=== PATIENT | male | born 1985 | race Caucasian/White ===

== ENCOUNTER 2017-10-20 13:46 | Emergency (ER) | payer BC ==
[2017-10-20] MEDS ORDERED: ONDANSETRON 4 MG/2 ML VIAL ONE (13:57)
[2017-10-20] MEDS ORDERED: NA CHLORIDE 0.9% 1,000 ML ONE (13:57)
--- NOTE | 2017-10-20 14:13 | EKG ---
Test Date: 2017-10-20 Test Time: 14:01:40 Piece Work Inspector: TAYLOR MEASUREMENT RESULTS: Intervals: Rate: 58 CT: 172 QRSD: 98 QT: 374 QTc: 367 [place]: P: 48 CT: 172 QRS: 34 T: 64 INTERPRETIVE STATEMENTS: Sinus bradycardia Junctional ST depression, probably normal Borderline ECG Compared to ECG 11/21/2015 13:02:08 ST (T wave) deviation now present Sinus rhythm no longer present Electronically Signed On 10-20-17 14:12:21 CDT by Manuel Peace
[2017-10-20 14:38] LABS: Absolute Lymphocytes (CBC) 3.4 K/uL (0.7-4.9); Absolute Neutrophil 20.2 K/uL (1.8-8.0); Basophils % 0.5 % (0-1.3); Hematocrit 49.8 % (39.6-49.0); Lymphocytes % 12.8 % (15.3-44.8); MCH 28.4 pg (27.0-35.0); MCV 86.9 fL (80-100); MPV 9.1 fL (7.6-11.3); Monocytes % 7.8 % (3.3-12.3); RBC Red Blood Cell Count 5.74 M/uL (4.33-5.43)
[2017-10-20 14:41] LABS: Protime INR 1.03
[2017-10-20] MEDS ORDERED: MORPHINE 4 MG/ML SYR ONE ×2 (14:42→15:36)
[2017-10-20] MEDS ORDERED: MAGNESIUM SULFATE 1 gm IVPB 1 GM/100 ML BAG IV ONE (14:42)
[2017-10-20] MEDS ORDERED: FAMOTIDINE 20 MG/2 ML VIAL IV ONE (14:42)
[2017-10-20 14:45] LABS: Glucose Level 308 mg/dL (65-120)
[2017-10-20] MEDS ORDERED: PROMETHAZINE 25 MG/ML VIAL ONE (14:50)
[2017-10-20 14:51] LABS: ALT/SGPT 36 IU/L (10-60); AST/SGOT 37 IU/L (10-42); Albumin 4.6 g/dL (3.2-5.5); Alkaline Phosphatase 86 IU/L (42-121); BUN Blood Urea Nitrogen 16 mg/dL (6-20); Bilirubin Direct 0.1 mg/dL (0-0.2); Bilirubin Total 0.6 mg/dL (0.3-1.2); Creatine Phosphokinase 129 IU/L (22-269); Glomerular Filtration Rate 66 mL/min (=/>90); Magnesium 1.9 mg/dL (1.8-2.5); Protein, Total 8.2 g/dL (6.0-8.3)
[2017-10-20 14:53] LABS: CKMB Creatine Kinase MB 2.6 ng/ml (0.3-4.0)
[2017-10-20 14:55] LABS: Alcohol Serum/Plasma < 10 mg/dl; Bicarbonate 21 mEq/L (21-31); Salicylates Level < 4.0 mg/dl (<30); Sodium Level 136 mEq/L (135-145)
[2017-10-20 14:59] LABS: Potassium 2.9 mEq/L (3.6-5.0)
[2017-10-20] MEDS ORDERED: HEPARIN/D5W 25,000 UNIT/500 ML BAG IV ONE (14:59)
[2017-10-20] MEDS ORDERED: HEPARIN 5000 UNIT/ML 1 ML VIAL ONE (14:59)
--- NOTE | 2017-10-20 15:15 | ER ---
Nurse's Notes [facility] Name: Zeferino Fuentes Age: 32 yrs Sex: Male : 1985 Arrival Date: 10/20/2017 Time: 13:49 Bed 7 Private MD: Diagnosis: Chest pain, unspecified;Hypokalemia;Non-ST elevation (NSTEMI) myocardial infarction;Essential (primary) hypertension Presentation: 10/20 13:54 Presenting complaint: EMS states: pt c/o heart palpitations that started about 1 hour em ago, denies chest pains +nausea, vomiting MANAGER PROJECT, given 0.4 mg round of nitro and 324 mg ASA MANAGER PROJECT. Transition of care: patient was not received from another setting of care. Onset of symptoms was October 20, 2017. Care prior to arrival: Medication(s) given: ASA, 81 mg, x 4, Nitroglycerin, 0.4 mg SL x 1. 13:54 Method Of Arrival: EMS: [facility] em 13:54 Acuity: MICHAEL 2 iw Triage Assessment: 14:03 General: Appears in no apparent distress. uncomfortable, Behavior is cooperative. Pain: em Complains of pain in head Pain currently is 6 out of 10 on a pain scale. Historical: - Allergies: 14:02 PENICILLINS; em - Home Meds: 14:02 Metoprolol Tartrate Oral [Active]; em - PMHx: 15:04 Hypertension; irregular heart beat; iw - Immunization history:: Adult Immunizations up to date. - Social history:: Smoking status: Patient/guardian denies using tobacco. - Family history:: not pertinent. Screenin:15 Abuse screen: Denies threats or abuse. Nutritional screening: No deficits noted. em Tuberculosis screening: No symptoms or risk factors identified. Fall Risk None identified. Assessment: 14:15 General: Appears uncomfortable, Behavior is cooperative, restless. General: Reports em palpitations that started around noon. Pain: Complains of pain in mid-sternal area Pain currently is 8 out of 10 on a pain scale. Quality of pain is described as pressure, sharp, Pain began noon. Neuro: Level of Consciousness is awake, alert, obeys commands, Oriented to person, place, time, situation. Cardiovascular: Reports chest pain, diaphoresis, palpitations, vomiting, since noon Heart tones S1 S2 present Capillary refill < 3 seconds. Respiratory: Airway is patent Respiratory effort is even, unlabored, Respiratory pattern is regular, symmetrical. GI: Pt is actively vomiting undigested food, Reports nausea, vomiting. : No signs and/or symptoms were reported regarding the genitourinary system. EENT: No signs and/or symptoms were reported regarding the EENT system. Derm: Skin is intact, Skin is diaphoretic, Skin is pale. Musculoskeletal: Range of motion: intact in all extremities. 14:30 Reassessment: I agree with above assessment by Chaz Ryan LVN. iw 14:35 Reassessment: Dr. Contreras at bedside, pt will be started on a heparin drip, charge em nurse notified, pt moved to ER7, report given to Katty Alanis RN. 15:00 General: Appears in no apparent distress. uncomfortable, obese, Behavior is calm, aj cooperative. Pain: Complains of pain in anterior aspect of left upper chest, mid-sternal area and left breast. Neuro: Level of Consciousness is awake, alert, obeys commands, Oriented to person, place, time, situation. Cardiovascular: Reports chest pain, diaphoresis, nausea, vomiting, Capillary refill < 3 seconds in bilateral fingers Patient's skin is warm and dry. Respiratory: Airway is patent Respiratory effort is even, unlabored, Respiratory pattern is regular, symmetrical. GI: Abdomen is obese, Reports nausea, vomiting. Derm: Skin is intact, is healthy with good turgor, Skin is pink, warm \T\ dry. normal. 17:01 Reassessment: Patient appears in no apparent distress at this time. No changes from aj previously documented assessment. Patient and/or family updated on plan of care and expected duration. Pain level reassessed. Patient is alert, oriented x 3, equal unlabored respirations, skin warm/dry/pink. Vital Signs: 14:03 BP 199 / 100; Pulse 86; Resp 22; Pulse Ox 98% on R/A; Weight 172.37 kg; Height 6 ft. 3 em in. (190.50 cm); Pain 6/10; 15:17 BP 155 / 82; Pulse 79; Resp 21; Pulse Ox 100% on 2 lpm NC; aj 15:51 BP 167 / 97; Pulse 78; Resp 19; Pulse Ox 100% on 2 lpm NC; aj 16:01 Temp 98.6; aj 16:30 BP 172 / 88 (art line/); Pulse 88; Resp 17; Pulse Ox 99% on R/A; aj 14:03 Body Mass Index 47.50 (172.37 kg, 190.50 cm) em ED Course: 13:49 Patient arrived in ED. em 13:54 Chaz Ryan LVN is Primary Nurse. em 13:56 Zurdo Contreras MD is Attending Physician. nithya 14:00 Radiology exam delayed due to IV insertion attempt and/or patient not having mh1 appropriate IV at this time. 14:03 Arm band placed on. em 14:06 EKG done, by component technician. reviewed by Zurdo Contreras MD. at1 14:15 Initial lab(s) drawn, by mn, sent to lab. Inserted saline lock: 20 gauge in left em antecubital area, using aseptic technique. Blood collected. 14:35 Triage completed. iw 15:00 Patient has correct armband on for positive identification. Placed in gown. Bed in low aj position. Side rails up X2. manager monitoring on. Pulse ox on. NIBP on. 15:00 Inserted saline lock: 20 gauge in right antecubital area, using aseptic technique. By fletcher Tobias RN. 15:05 XRAY Chest (1 view) In Process Unspecified. EDMS 15:05 X-ray completed. Portable x-ray completed in exam room. Patient tolerated procedure kc2 well. 16:11 EKG done, by component technician. reviewed by Zurdo Contreras MD Repeat EKG. at1 16:30 No provider procedures requiring assistance completed. Patient transferred, IV remains aj in place. intact. Administered Medications: 14:08 Not Given (Physician Discretion): Aspirin Chewable Tablet 324 mg PO once; 81 mg tablets em x 4 14:18 Drug: Zofran 4 mg Route: IVP; Site: left antecubital; iw 15:25 Follow up: Response: No adverse reaction aj 14:29 Drug: NS 0.9% 1000 ml Route: IV; Rate: 1 bolus; Site: left antecubital; em 17:01 Follow up: Response: No adverse reaction; IV Status: Completed infusion; IV Intake: aj 1000ml 14:36 CANCELLED (Duplicate Order): Lopressor 5 mg IVP once; Hold for SBP <100 or HR <60. [facility] 14:36 CANCELLED (Duplicate Order): Lopressor 5 mg IVP once; Hold for SBP <100 or HR <60. nithya 14:53 Drug: Pepcid 20 mg Route: IVP; Site: left antecubital; aj 15:25 Follow up: Response: No adverse reaction aj 14:53 Drug: morphine 2 mg Route: IVP; Site: left antecubital; aj 17:00 Follow up: Response: Pain is decreased aj 14:53 Drug: Phenergan 12.5 mg Route: IVP; Site: left antecubital; aj 16:59 Follow up: Response: Nausea is decreased aj 15:07 Drug: Heparin (IA-Bolus No thrombolytic) - HEParin 60 units/kg {Co-Signature: armen bynum (Tennille Klein RN).} Route: IVP; Site: left antecubital; 15:09 Drug: Heparin (IA Drip) 12 units/kg/hr - (HEParin 05990 units, D5W 500 ml) aj {Co-Signature: armen (Tennille Klein RN).} Route: IV; Rate: calculated rate; Site: left antecubital; 17:01 Follow up: IV Status: Infusion continued upon transfer aj 15:12 Drug: morphine 2 mg Route: IVP; Site: left antecubital; aj 15:57 Follow up: Response: Pain is decreased aj 15:24 Drug: Magnesium Sulfate 1 grams Route: IVPB; Infused Over: 1 hrs; Site: right aj antecubital; 16:15 Follow up: Response: No adverse reaction; IV Status: Completed infusion; IV Intake: aj 100ml 15:24 Drug: Potassium Chloride 40 mEq Route: PO; aj 16:59 Follow up: Response: No adverse reaction aj 15:24 Drug: Insulin Regular Human 8 units {Co-Signature: armen (Tennille Klein RN).} Route: aj Sub-Q; Site: right lower abdomen; 16:58 Follow up: Response: No adverse reaction aj 15:24 Drug: PlaVIX 600 mg Route: PO; aj 16:59 Follow up: Response: No adverse reaction aj 15:40 Drug: Potassium Chloride 20 mEq Route: IV; Rate: per protocol; Site: right antecubital; aj 16:59 Follow up: Response: No adverse reaction; IV Status: Infusion continued upon transfer; aj IV Intake: 25ml 15:42 Drug: morphine 4 mg Route: IVP; Site: right antecubital; aj 16:59 Follow up: Response: Pain is decreased aj Intake: 16:15 IV: 100ml; Total: 100ml. aj 16:59 IV: 25ml; Total: 125ml. aj 17:01 IV: 1000ml; Total: 1125ml. aj Outcome: 15:14 ER care complete, transfer ordered by . nithya 16:30 Transferred by helicopter to [facility], Transfer form completed. aj X-rays sent w/ patient. 16:30 critical 16:30 Instructed on the need for transfer. 17:03 Patient left the ED. aj Signatures: Dispatcher [employer] Katty Billingsley, RN Zurdo Agarwal MD MD cha Harvey, Martha mh1 Chaz Ryan, QUALITY PROCESS AUDITOR QUALITY PROCESS AUDITOR em Gisella Tobias RN RN iw gonzales, Amanda, web production assistant EKG Tat1 Jessika Harrison kc2 Tennille Klein RN Corrections: (The following items were deleted from the chart) 14:03 13:54 Presenting complaint: EMS states: pt c/o heart palpitations that started about 1 em hour ago, +nausea, vomiting MANAGER PROJECT, given 0.4 mg round of nitro and 324 mg ASA MANAGER PROJECT em 15:41 15:40 NS 0.9% with KCl 20 mEq/L 1000 ml IV at 125 ml/hr in right antecubital aj aj
--- NOTE | 2017-10-20 15:15 | EDPHYS ---
Physician Documentation [facility] Name: Zeferino Fuentes Age: 32 yrs Sex: Male : 1985 Arrival Date: 10/20/2017 Time: 13:49 Bed 7 Private MD: ED Physician Zurdo Contreras HPI: 10/20 14:41 This 32 yrs old Male presents to ER via EMS with complaints of Chest Pain. nithya 14:41 The patient or guardian reports chest pain that is located primarily in the substernal nithya area, anterior chest wall, left. The pain does not radiate. Associated signs and symptoms: Pertinent positives:. The chest pain is described as a pressure. Duration: The patient or guardian reports multiple episodes, that wax and wane. Modifying factors: The symptoms are alleviated by nothing. the symptoms are aggravated by nothing. Severity of pain: At its worst the pain was mild in the emergency department the pain is unchanged. The patient has not experienced similar symptoms in the past. Historical: - Allergies: 14:02 PENICILLINS; em - Home Meds: 14:02 Metoprolol Tartrate Oral [Active]; em - PMHx: 15:04 Hypertension; irregular heart beat; iw - Immunization history:: Adult Immunizations up to date. - Social history:: Smoking status: Patient/guardian denies using tobacco. - Family history:: not pertinent. ROS: 14:41 Constitutional: Negative for fever, chills, and weight loss, Eyes: Negative for injury, nithya pain, redness, and discharge, ENT: Negative for injury, pain, and discharge, Neck: Negative for injury, pain, and swelling, Respiratory: Negative for shortness of breath, cough, wheezing, and pleuritic chest pain, Abdomen/GI: Negative for abdominal pain, nausea, vomiting, diarrhea, and constipation, Back: Negative for injury and pain, : Negative for injury, bleeding, discharge, and swelling, MS/Extremity: Negative for injury and deformity, Skin: Negative for injury, rash, and discoloration, Neuro: Negative for headache, weakness, numbness, tingling, and seizure, Psych: Negative for depression, anxiety, suicide ideation, homicidal ideation, and hallucinations, Allergy/Immunology: Negative for hives, rash, and allergies, Endocrine: Negative for neck swelling, polydipsia, polyuria, polyphagia, and marked weight changes, Hematologic/Lymphatic: Negative for swollen nodes, abnormal bleeding, and unusual bruising. 14:41 Cardiovascular: Positive for chest pain, palpitations. Exam: 14:41 Constitutional: This is a well developed, well nourished patient who is awake, alert, nithya and in no acute distress. Head/Face: Normocephalic, atraumatic. Eyes: Pupils equal round and reactive to light, extra-ocular motions intact. Lids and lashes normal. Conjunctiva and sclera are non-icteric and not injected. Cornea within normal limits. Periorbital areas with no swelling, redness, or edema. ENT: Nares patent. No nasal discharge, no septal abnormalities noted. Tympanic membranes are normal and external auditory canals are clear. Oropharynx with no redness, swelling, or masses, exudates, or evidence of obstruction, uvula midline. Mucous membranes moist. Neck: Trachea midline, no thyromegaly or masses palpated, and no cervical lymphadenopathy. Supple, full range of motion without nuchal rigidity, or vertebral point tenderness. No Meningismus. Chest/axilla: Normal chest wall appearance and motion. Nontender with no deformity. No lesions are appreciated. Cardiovascular: Regular rate and rhythm with a normal S1 and S2. No gallops, murmurs, or rubs. Normal PMI, no JVD. No pulse deficits. Respiratory: Lungs have equal breath sounds bilaterally, clear to auscultation and percussion. No rales, rhonchi or wheezes noted. No increased work of breathing, no retractions or nasal flaring. Abdomen/GI: Soft, non-tender, with normal bowel sounds. No distension or tympany. No guarding or rebound. No evidence of tenderness throughout. Back: No spinal tenderness. No costovertebral tenderness. Full range of motion. Male : Normal genitalia with no discharge or lesions. MS/ Extremity: Pulses equal, no cyanosis. Neurovascular intact. Full, normal range of motion. Neuro: Awake and alert, GCS 15, oriented to person, place, time, and situation. Cranial nerves II-XII grossly intact. Motor strength 5/5 in all extremities. Sensory grossly intact. Cerebellar exam normal. Normal gait. Psych: Awake, alert, with orientation to person, place and time. Behavior, mood, and affect are within normal limits. 14:41 Skin: Appearance: Color: pale, Moisture: diaphoretic, petechiae, not noted, ecchymosis, not noted, diaphoresis is noted. Vital Signs: 14:03 BP 199 / 100; Pulse 86; Resp 22; Pulse Ox 98% on R/A; Weight 172.37 kg; Height 6 ft. 3 em in. (190.50 cm); Pain 6/10; 15:17 BP 155 / 82; Pulse 79; Resp 21; Pulse Ox 100% on 2 lpm NC; aj 15:51 BP 167 / 97; Pulse 78; Resp 19; Pulse Ox 100% on 2 lpm NC; aj 16:01 Temp 98.6; aj 16:30 BP 172 / 88 (art line/); Pulse 88; Resp 17; Pulse Ox 99% on R/A; aj 14:03 Body Mass Index 47.50 (172.37 kg, 190.50 cm) em MDM: 13:56 Patient medically screened. [facility] 14:46 Data reviewed: vital signs, nurses notes, lab test result(s), EKG, radiologic studies, nithya plain films. 10/20 13:57 Order name: Basic Metabolic Panel [facility] 10/20 13:57 Order name: BNP [facility] 10/20 13:57 Order name: CBC with Diff [facility] 10/20 13:57 Order name: Ckmb [facility] 10/20 13:57 Order name: CPK; Complete Time: 16:04 [facility] 10/20 13:57 Order name: LFT's; Complete Time: 16:04 [facility] 10/20 13:57 Order name: Magnesium; Complete Time: 16:04 [facility] 10/20 13:57 Order name: PT-INR; Complete Time: 15:00 [facility] 10/20 13:57 Order name: Ptt, Activated; Complete Time: 15:00 [facility] 10/20 13:57 Order name: Troponin (emerg Dept Use Only); Complete Time: 15:00 [facility] 10/20 13:57 Order name: TSH; Complete Time: 16:04 [facility] 10/20 13:57 Order name: Acetaminophen; Complete Time: 16:04 [facility] 10/20 13:57 Order name: ETOH Level; Complete Time: 16:04 [facility] 10/20 13:57 Order name: Salicylate; Complete Time: 16:04 [facility] 10/20 13:57 Order name: XRAY Chest (1 view) [facility] 10/20 13:57 Order name: Basic Metabolic Panel; Complete Time: 16:04 [facility] 10/20 13:57 Order name: BNP B-Type Natriuretic Peptide; Complete Time: 15:00 [facility] 10/20 13:57 Order name: CBC with Automated Diff; Complete Time: 15:00 [facility] 10/20 13:57 Order name: CKMB Creatine Kinase MB; Complete Time: 16:04 [facility] 10/20 14:34 Order name: Echo w/ Doppler [facility] 10/20 13:57 Order name: EKG; Complete Time: 13:58 [facility] 10/20 13:57 Order name: Cardiac monitoring; Complete Time: 15:57 [facility] 10/20 13:57 Order name: EKG - Nurse/Tech; Complete Time: 15:57 [facility] 10/20 13:57 Order name: IV Saline Lock; Complete Time: 15:57 [facility] 10/20 13:57 Order name: Labs collected and sent; Complete Time: 15:57 [facility] 10/20 13:57 Order name: O2 Per Protocol; Complete Time: 15:57 [facility] 10/20 13:57 Order name: O2 Sat Monitoring; Complete Time: 15:57 [facility] 10/20 15:01 Order name: IV Saline Lock - Large Bore; Complete Time: 15:25 [facility] 10/20 16:28 Order name: EKG Electrocardiogram [facility] 10/20 16:28 Order name: EKG Electrocardiogram [facility] 10/20 16:28 Order name: EKG Electrocardiogram [facility] Administered Medications: 14:08 Not Given (Physician Discretion): Aspirin Chewable Tablet 324 mg PO once; 81 mg tablets em x 4 14:18 Drug: Zofran 4 mg Route: IVP; Site: left antecubital; iw 15:25 Follow up: Response: No adverse reaction aj 14:29 Drug: NS 0.9% 1000 ml Route: IV; Rate: 1 bolus; Site: left antecubital; em 17:01 Follow up: Response: No adverse reaction; IV Status: Completed infusion; IV Intake: aj 1000ml 14:36 CANCELLED (Duplicate Order): Lopressor 5 mg IVP once; Hold for SBP <100 or HR <60. nithya 14:36 CANCELLED (Duplicate Order): Lopressor 5 mg IVP once; Hold for SBP <100 or HR <60. nithya 14:53 Drug: Pepcid 20 mg Route: IVP; Site: left antecubital; aj 15:25 Follow up: Response: No adverse reaction aj 14:53 Drug: morphine 2 mg Route: IVP; Site: left antecubital; aj 17:00 Follow up: Response: Pain is decreased aj 14:53 Drug: Phenergan 12.5 mg Route: IVP; Site: left antecubital; aj 16:59 Follow up: Response: Nausea is decreased aj 15:07 Drug: Heparin (AR-Bolus No thrombolytic) - HEParin 60 units/kg {Co-Signature: armen bynum (Tennille Klein RN).} Route: IVP; Site: left antecubital; 15:09 Drug: Heparin (AR Drip) 12 units/kg/hr - (HEParin 38882 units, D5W 500 ml) fletcher {Co-Signature: armen (Tennille Kelin RN).} Route: IV; Rate: calculated rate; Site: left antecubital; 17:01 Follow up: IV Status: Infusion continued upon transfer aj 15:12 Drug: morphine 2 mg Route: IVP; Site: left antecubital; aj 15:57 Follow up: Response: Pain is decreased aj 15:24 Drug: Magnesium Sulfate 1 grams Route: IVPB; Infused Over: 1 hrs; Site: right aj antecubital; 16:15 Follow up: Response: No adverse reaction; IV Status: Completed infusion; IV Intake: aj 100ml 15:24 Drug: Potassium Chloride 40 mEq Route: PO; aj 16:59 Follow up: Response: No adverse reaction aj 15:24 Drug: Insulin Regular Human 8 units {Co-Signature: armen (Tennille Klein RN).} Route: aj Sub-Q; Site: right lower abdomen; 16:58 Follow up: Response: No adverse reaction aj 15:24 Drug: PlaVIX 600 mg Route: PO; aj 16:59 Follow up: Response: No adverse reaction aj 15:40 Drug: Potassium Chloride 20 mEq Route: IV; Rate: per protocol; Site: right antecubital; aj 16:59 Follow up: Response: No adverse reaction; IV Status: Infusion continued upon transfer; aj IV Intake: 25ml 15:42 Drug: morphine 4 mg Route: IVP; Site: right antecubital; aj 16:59 Follow up: Response: Pain is decreased aj Disposition: 10/20/17 15:14 Transfer ordered to [facility]. Diagnosis are Chest pain, unspecified, Hypokalemia, Non-ST elevation (NSTEMI) myocardial infarction, Essential (primary) hypertension. - Reason for transfer: Higher level of care. - Accepting physician [facility] to [facility]. - Condition is Serious. - Problem is new. - Symptoms have improved. Signatures: Dispatcher [employer] Katty Billingsley RN RN aj Anderson, Corey, MD MD cha Munoz, Edgar, ABORIGINAL LIAISON OFFICER ABORIGINAL LIAISON OFFICER Gisella Engle RN RN Tennille Klein RN Corrections: (The following items were deleted from the chart) 14:36 14:34 Lopressor 5 mg IVP once; Hold for SBP <100 or HR <60. ordered. nithya nithya 14:36 14:34 Lopressor 5 mg IVP once; Hold for SBP <100 or HR <60. ordered. nithya nithya
[2017-10-20] MEDS ORDERED: CLOPIDOGREL 75 MG TABLET ONE (15:16)
[2017-10-20] MEDS ORDERED: POTASSIUM CL SA 10 MEQ TAB PO ONE (15:17)
[2017-10-20] MEDS ORDERED: INSULIN -REGULAR HUMAN 50 UNIT/0.5 ML ML ONE (15:18)
[2017-10-20 15:31] LABS: Thyroid Stimulating Hormone 3.27 uIU/mL (0.34-5.60)
[2017-10-20] MEDS ORDERED: KCL 20 MEQ/100 mL IVPB 20 MEQ/100 ML BAG IV ONE (15:31)
--- NOTE | 2017-10-20 16:05 | RAD REPORT ---
EXAM DESCRIPTION: RAD - Chest Single View - 10/20/2017 3:07 pm CLINICAL HISTORY: Palpitations, a arrhythmia COMPARISON: None. TECHNIQUE: AP portable chest image was obtained 1502 hours . FINDINGS: Lung volumes are low. Body habitus and shallow inspiration results in accentuated lung mar kings. An acute process is doubtful. Heart and vasculature are normal. No measurable pleural effusion and no pneumothorax. No gross bony abnormality seen. No acute aortic findings suspected. IMPRESSION: No acute cardiopulmonary process.
--- NOTE | 2017-10-20 16:36 | ECHO ---
HEIGHT: ft in WEIGHT: lb oz DATE OF STUDY: 10/20/[address]: Zurdo Contreras MD 2-DIMENSIONAL: YES M.MODE: YES DOPPLER: YES COLOR FLOW: YES TDS: YES PORTABLE: DEFINITY: BUBBLE STUDY: DIAGNOSIS: CHEST PAIN CARDIAC HISTORY: CATHERIZATION: NO SURGERY: NO PROSTHETIC VALVE: NO PACEMAKER: NO MEASUREMENTS (cm) DIASTOLIC (NORMALS) SYSTOLIC (NORMALS) IVSd 1.5 (0.6-1.2) LA Diam 4.1 (1.9-4.0) LVEF 79% LVIDd 3.4 (3.5-5.7) LVIDs 1.8 (2.0-3.5) %FS 47% LVPWd 1.5 (0.6-1.2) Ao Diam 3.3 (2.0-3.7) 2 DIMENSIONAL ASSESSMENT: RIGHT ATRIUM: NORMAL LEFT ATRIUM: DILATED RIGHT VENTRICLE: NORMAL LEFT VENTRICLE: NORMAL TRICUSPID VALVE: NORMAL MITRAL VALVE: NORMAL PULMONIC VALVE: NORMAL AORTIC VALVE: NORMAL PERICARDIAL EFFUSION: NONE AORTIC ROOT: NORMAL LEFT VENTRICULAR WALL MOTION: NORMAL DOPPLER/COLOR FLOW: IMPAIRED LEFT VENTRICULAR RELAXATION. COMMENTS: NORMAL LEFT VENTRICULAR EJECTION FRACTION. LEFT VENTRICULAR HYPERTROPHY. DILATED LEFT ATRIUM. IMPAIRED LEFT VENTRICULAR RELAXATION. TECHNOLOGIST: CIARA HAYWOOD
--- NOTE | 2017-10-20 16:47 | EKG ---
Test Date: 2017-10-20 Test Time: 16:08:34 Director Of Pulmonary Unit: TAYLOR MEASUREMENT RESULTS: Intervals: Rate: 75 [place]: 172 QRSD: 94 QT: 378 QTc: 422 [place]: P: 48 NJ: 172 QRS: 25 T: 52 INTERPRETIVE STATEMENTS: Normal sinus rhythm Normal ECG Compared to ECG 10/20/2017 14:33:17 Intraventricular conduction delay no longer present ST (T wave) deviation no longer present Electronically Signed On 10-20-17 16:47:19 CDT by Manuel Peace
--- NOTE | 2017-10-20 16:50 | EKG ---
Test Date: 2017-10-20 Test Time: 14:33:17 Clinical Courier: TANIYA MEASUREMENT RESULTS: Intervals: Rate: 96 MN: QRSD: 120 QT: 438 QTc: 553 [place]: P: MN: QRS: 69 T: 43 INTERPRETIVE STATEMENTS: Sinus rhythm with consecutive, frequent PVCs and junctional escape complexes Nonspecific intraventricular conduction delay Nonspecific ST abnormality Abnormal ECG Compared to ECG 10/20/2017 14:32:31 Intraventricular conduction delay now present ST (T wave) deviation now present Junctional rhythm and PVCs are now present Electronically Signed On 10-20-17 16:50:01 CDT by Manuel Peace
--- NOTE | 2017-10-20 16:51 | EKG ---
Test Date: 2017-10-20 Test Time: 14:32:31 Data Management: TANIYA MEASUREMENT RESULTS: Intervals: Rate: 57 [place]: QRSD: 154 QT: 476 QTc: 463 [place]: P: [place]: QRS: 111 T: 7 INTERPRETIVE STATEMENTS: Idioventricular rhythm Abnormal ECG Compared to ECG 10/20/2017 14:01:40 Sinus bradycardia no longer present Electronically Signed On 10-20-17 16:50:44 CDT by Manuel Peace
[2017-10-20 17:10] VITALS: TEMP 98.6
[2017-10-20 17:11] VITALS: BP 172/88; O2SAT 99
== END 2017-10-20 17:03 | disposition short-term general hospital (02) ==
LOC: ER 13:46
DX: I21.4 Non-ST elevation (NSTEMI) myocardial infarction (principal); I10 Essential (primary) hypertension; E87.6 Hypokalemia; Z88.0 Allergy status to penicillin
CPT/HCPCS: 36415; 71045; 80048; 80076; 80320; 80329; 82550; 82553; 83735; 83880; 84443; 84484; 85025; 85610; 85730; 93005; 93306; 96372; 99285; J1644; J2405; J2550; J3475; J7030

== ENCOUNTER 2018-03-23 12:52 | Observation (INO) | payer BC ==
[2018-03-23 15:55] VITALS: BMI 51.2
--- NOTE | 2018-03-23 17:11 | P.HP ---
Certification for Inpatient Patient admitted to: Inpatient With expected LOS: >2 Midnights Patient will require the following post-hospital care: None Practitioner: I am a practitioner with admitting privileges, knowledge of patient current condition, hospital course, and medical plan of care. Services: Services provided to patient in accordance with Admission requirements found in Title 42 Section 412.3 of the Code of Federal Regulations Patient History Date of Service: 03/23/18 Primary Care Provider: Rosa Hammond Reason for admission: skin abcess History of Present Illness: Patient is a gentleman who Sees Kinjal Hammond. He has been having a growing swelling on his back. He has been having fevers at home. His tmax was 102. Came to the office and Mrs Hammond noticed a hard swelling a fluid filled pocket. 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 he does struggle with his weight. He has had diabetic range sugars in the past as well. Allergies Penicillins Allergy (Unknown, Verified 03/23/18 15:52) Unknown Home Medications: NK [No Home Meds] 03/23/18 - Past Medical/Surgical History Has patient received pneumonia vaccine in the past: No Diabetic: No -: HTN -: irregular heartbeat -: pheochromal cytoma -: adrenal gland removal - Family History Mother -: Heart disease, Hypertension, Diabetes, Stroke Notes: , stroke january 2018 Father -: Heart disease, Hypertension, Diabetes, Stroke Notes: , 2008 - Social History Smoking Status: Former smoker Alcohol use: Yes CD- Drugs: No Caffeine use: Yes Place of Residence: Home Review of Systems 10-point ROS is otherwise unremarkable Integumentary: Other (swelling as stated in the HPI) Physical Examination - Physical Exam General: Alert, In no apparent distress HEENT: Atraumatic, PERRLA, Mucous membr. moist/pink, EOMI, Sclerae nonicteric Neck: Supple, 2+ carotid pulse no bruit, No LAD, Without JVD or thyroid abnormality Respiratory: Clear to auscultation bilaterally, Normal air movement Cardiovascular: Regular rate/rhythm, Normal S1 S2 Gastrointestinal: Normal bowel sounds, No tenderness Musculoskeletal: No tenderness Integumentary: No rashes, Erythema, Warmth (small fluid filled pocket at the left upper back. larger area of induration above this) Neurological: Normal gait, Normal speech, Normal strength at 5/5 x4 extr, Normal tone, Normal affect Lymphatics: No axilla or inguinal lymphadenopathy Assessment and Plan - Problems (Diagnosis) (1) Abscess of skin Current Visit: Yes Status: Acute Plan: Will start bactrim. check blood cultures. The patients history of MRSA and the temperatures are woresome. Will admit him for I&D. to keep him from worsening. Will consult Dr. Olson Qualifiers: Site of cutaneous abscess: trunk (2) Tachyarrhythmia Current Visit: Yes Status: Acute Plan: Continue metoprolol and keep him for a day on telemetry (3) Body mass index (BMI) of 50-59.9 in adult Current Visit: Yes Status: Acute Plan: Will check sugars and lipids. Will consider and fasting insulin level Discharge Plan: Home Plan to discharge in: 48 Hours - Advance Directives Does patient have a Living Will: No Does patient have a Durable POA for Healthcare: No - Code Status/Comfort Care Code Status Assessed: No Code Status: Full Code Physician Review: Patient Assessed, Agree with Above Assessment and Plan Critical Care: No Time Spent Managing Pts Care (In Minutes): 70
[2018-03-23 17:27] LABS: Protime INR 1.1
[2018-03-23 17:51] LABS: ALT/SGPT 29 U/L (12-78); AST/SGOT 13 U/L (15-37); Albumin 3.3 g/dL (3.4-5.0); Alkaline Phosphatase 106 U/L (45-117); BUN Blood Urea Nitrogen 13 mg/dL (7-18); Bicarbonate 27 mmol/L (21-32); Bilirubin Total 0.8 mg/dL (0.2-1.0); Glucose Level 122 mg/dL (74-106); Potassium 3.8 mmol/L (3.5-5.1); Protein, Total 7.4 g/dL (6.4-8.2); Sodium Level 138 mmol/L (136-145)
[2018-03-23] MEDS: ENOXAPARIN 40 MG/0.4 ML SQ SCH (18:02)
[2018-03-23 20:41] LABS: Absolute Lymphocytes (CBC) 2.7 K/uL (0.7-4.9); Absolute Monocytes 1.4 K/uL (0.1-1.3); Absolute Neutrophil 9.4 K/uL (1.8-8.0); Basophils % 0.9 % (0-1.3); Eosinophils % 4.4 % (0-4.4); Lymphocytes % 19.1 % (15.3-44.8); MCH 29.3 pg (27.0-35.0); MCV 84.5 fL (80-100); MPV 8.5 fL (7.6-11.3); Monocytes % 9.5 % (3.3-12.3); RBC Red Blood Cell Count 4.74 M/uL (4.33-5.43)
[2018-03-23] MEDS: ACETAMINOPHEN 325 MG TABLET PO PRN (21:27)
[2018-03-23 22:30] LABS: Urine Appearance CLEAR; Urine Bilirubin NEGATIVE (NEG); Urine Blood NEGATIVE (NEG); Urine Color YELLOW; Urine Glucose NEGATIVE (NEG); Urine Protein NEGATIVE (NEG); Urine Specific Gravity 1.025 (1.005-1.030)
[2018-03-23 23:01] LABS: Urine Culture Reflex Order NOT NEEDED
[2018-03-23 23:02] LABS: Urine Amorphous Sediment 2+ /HPF (NONE SEEN); Urine Bacteria <20 /HPF (NONE SEEN); Urine RBC NONE SEEN /HPF (NONE SEEN)
--- NOTE | 2018-03-23 23:06 | CON ---
Date of Consultation: 03/23/2018 Brief History Of Present Illness: The patient is a 32-year-old man, who presents with an approximately 3-day history of back pain and difficulty. He has chronic acne of his back he states and developed pain and chills and fever and significant worsening to the main portion of his upper back. He noted some fullness in that area but was unable to really palpate it as it was central portion of his upper back between the shoulder blades. It was tender to the touch and it got progressively worse. As such, he came to Dr. Goodwin who saw, evaluated him, and found that he had a drainable collection in this area and as such he was admitted to the hospital with cellulitis and possible abscess of the upper back. He has been receiving antibiotics since his admission. Past Medical History: Significant for pheochromocytoma and associated hypertension. 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 Allergies: TO PENICILLIN, ALTHOUGH HE HAS NEVER HAD PENICILLIN TO HIS KNOWLEDGE. Home Medications: None. Social History: He denies smoking, alcohol, or recreational drug use. Family History: Reviewed and noncontributory. Review of Systems: A 10-point review of systems other than HPI, denies. Physical Examination: General: At the time of my examination, he is awake, alert, and oriented. Psychiatric: Appropriate and conversive. HEENT: He is normocephalic. Sclerae anicteric. Mucous membranes moist. Oropharynx clear. Neck: Supple. No JVD. Chest: Normal expansion and excursion. Cardiovascular: Regular rate and rhythm. Pulmonary: Clear to auscultation bilaterally. Abdomen: Soft. Well-healed laparoscopic scars on the left side from his previous laparoscopic surgery. Otherwise, abdomen is generally obese and soft, nontender. Extremities: No clubbing, cyanosis, edema. Skin: Examination shows a fluctuant fluid collection of approximately 5 cm in the midportion of his upper back consistent with an abscess. There is surrounding cellulitis to this area too and acne associated. There is no evidence of a puncture. He is unaware of any injury this area. Laboratory Data: He had a laboratory exam, which is currently pending. Assessment And Plan: A 32-year-old male, who presents with an abscess of the upper back. 1. IV fluid hydration. 2. Antibiotic coverage. 3. I have explained the risks, benefits, and alternatives of incision and drainage of this abscess with ongoing wound care going forward. He agrees to proceed as indicated. ROGELIO/JENNIFER Voice ID: [id number] Report ID: [id number] MTDD
--- NOTE | 2018-03-24 00:33 | EKG ---
Test Date: 2018-03-23 Test Time: 16:32:48 Oxidation Engineer: PONCE MEASUREMENT RESULTS: Intervals: Rate: 79 AK: 160 QRSD: 90 QT: 366 QTc: 419 [place]: P: 44 AK: 160 QRS: 20 T: 38 INTERPRETIVE STATEMENTS: Normal sinus rhythm Low voltage QRS Borderline ECG Compared to ECG 10/20/2017 16:08:34 Low QRS voltage now present Electronically Signed On 03-24-18 00:31:57 CDT by Reuben Yuen
[2018-03-24 06:02] LABS: Absolute Lymphocytes (CBC) 2.1 K/uL (0.7-4.9); Absolute Monocytes 1.2 K/uL (0.1-1.3); Basophils % 0.4 % (0-1.3); Eosinophils % 3.5 % (0-4.4); Lymphocytes % 16.5 % (15.3-44.8); MCH 29.9 pg (27.0-35.0); MCV 83.7 fL (80-100); MPV 8.5 fL (7.6-11.3); Monocytes % 9.3 % (3.3-12.3)
[2018-03-24 06:26] LABS: BUN Blood Urea Nitrogen 13 mg/dL (7-18); Bicarbonate 28 mmol/L (21-32); Glucose Level 94 mg/dL (74-106); HDL Cholesterol 37 mg/dL (40-60); LDL Cholesterol, Calculated 122 (<130); Potassium 3.8 mmol/L (3.5-5.1); Sodium Level 138 mmol/L (136-145)
[2018-03-24] MEDS: METOPROLOL XL 25 MG TAB PO SCH (06:35)
[2018-03-24] MEDS: ACETAMINOPHEN 325 MG TABLET PO PRN (06:38)
[2018-03-24] MEDS: PANTOPRAZOLE 40MG TABLET PO SCH (07:30)
--- NOTE | 2018-03-24 09:14 | P.PN ---
Subjective Date of Service: 03/24/18 Primary Care Provider: Rosa Hammond Chief Complaint: skin abcess Subjective: No new changes (plans for the or today) Review of Systems 10-point ROS is otherwise unremarkable Physical Examination - Vital Signs Temperature: 97.7 F Blood Pressure: 120/64 Pulse: 69 Respirations: 20 Pulse Ox (%): 98 - Physical Exam General: Alert, In no apparent distress HEENT: Atraumatic, PERRLA, EOMI Neck: Supple, JVD not distended Respiratory: Clear to auscultation bilaterally, Normal air movement Cardiovascular: Regular rate/rhythm, Normal S1 S2 Gastrointestinal: Normal bowel sounds, No tenderness Musculoskeletal: No tenderness Integumentary: No rashes Neurological: Normal speech, Normal tone, Normal affect Lymphatics: No axilla or inguinal lymphadenopathy - Studies Laboratory Data (last 24 hrs) 03/24/18 05:27: Sodium 138, Potassium 3.8, BUN 13, Creatinine 0.80, Glucose 94, Magnesium 2.0, Triglycerides 80, Cholesterol 175, HDL Cholesterol 37 L, Cholesterol/HDL Ratio 4.73 03/24/18 05:27: WBC 12.8 H, Hgb 14.6, Hct 41.0, Plt Count 184 03/24/18 05:00: Triglycerides Cancelled, Cholesterol Cancelled, HDL Cholesterol Cancelled, Cholesterol/HDL Ratio Cancelled 03/24/18 03:09: Troponin I < 0.02 03/23/18 20:30: WBC 14.3 H, Hgb 13.9, Hct 40.0, Plt Count 192 03/23/18 20:30: Troponin I < 0.02 03/23/18 17:10: Sodium 138, Potassium 3.8, BUN 13, Creatinine 0.90, Glucose 122 H, Total Bilirubin 0.8, AST 13 L, ALT 29, Alkaline Phosphatase 106 03/23/18 17:10: PT 13.0 H, INR 1.10 03/23/18 16:27: Troponin I < 0.02 Assessment & Plan - Problems (Diagnosis) (1) Abscess of skin Current Visit: Yes Status: Acute Plan: Will start bactrim. check blood cultures. The patients history of MRSA and the temperatures are woresome. Will admit him for I&D. to keep him from worsening. Will consult Dr. Olson Qualifiers: Site of cutaneous abscess: trunk (2) Tachyarrhythmia Current Visit: Yes Status: Acute Plan: Continue metoprolol and keep him for a day on telemetry (3) Body mass index (BMI) of 50-59.9 in adult Current Visit: Yes Status: Acute Plan: Will check sugars and lipids. Will consider and fasting insulin level Discharge Plan: Home Plan to discharge in: 24 Hours - Code Status/Comfort Care Code Status Assessed: Yes Code Status: Full Code Physician Review: Patient Assessed, Agree with Above Assessment and Plan Critical Care: No Time Spent Managing Pts Care (In Minutes): 20
[2018-03-24] MEDS ORDERED: Ringers Lactate 1,000 ML IV ONE ×2 (11:06→14:05)
[2018-03-24] MEDS ORDERED: PROPOFOL 200 MG/20 ML VIAL IV ONE ×2 (11:28→12:18)
[2018-03-24] MEDS ORDERED: MIDAZOLAM HCL 2 MG/2 ML INJ ONE ×2 (11:28→12:18)
[2018-03-24] MEDS ORDERED: LIDOCAINE 2% MPF 5 ML VIAL ONE ×2 (11:29→12:18)
[2018-03-24] MEDS ORDERED: FENTANYL CITR 100 MCG/2 ML ONE ×2 (11:29→12:18)
[2018-03-24] MEDS ORDERED: BUPIVACA 0.25%/EPI 0.0005% MDV 50 ML VIAL ONE (12:18)
[2018-03-24] MEDS ORDERED: VANCOMYCIN 1 GM/250 ML BAG ONE (12:34)
--- NOTE | 2018-03-24 13:16 | P.OP ---
[employer] Supervisor: Zachary Ayala Preoperative diagnosis: Back Absess Postoperative diagnosis: Back Absess Primary procedure: incision and drainage of Back Absess Anesthesia: MAC + Local Estimated blood loss: <10cc Specimen: cultures Findings: ~4cm round multiloculated abscess Complications: None Transferred to: Recovery Room Condition: Good
[2018-03-24] MEDS: MEPERIDINE HCL 50 MG/ML AMP ONE ×2 (13:40→13:45)
[2018-03-24] MEDS ORDERED: ONDANSETRON 4 MG/2 ML VIAL ONE (14:00)
[2018-03-24 14:14] VITALS: O2SAT 97
[2018-03-24] MEDS: MORPHINE 2 MG/ML SYR IV PRN ×3 (15:26→23:37)
--- NOTE | 2018-03-24 15:47 | OP ---
Date of Procedure: 03/24/2018 Surgeon: Jorge Olson MD, Science Instructor: Anna Garrett. Preoperative Diagnosis: Back abscess. Postoperative Diagnosis: Back abscess. Procedure Performed: Incision and drainage of back abscess. Anesthesia: MAC plus local with 0.25% Marcaine with epinephrine. Estimated Blood Loss: Less than 10 cc. Specimen: Cultures for both aerobic and anaerobic cultures. Findings: Approximately 4 cm round multiloculated abscess of midportion of the back. Complications: None. Disposition: Transferred to recovery room in good condition. Procedure In Detail: After informed consent was obtained, the patient was brought to the operating r oom, prepped and draped in the usual sterile fashion. After adequate anesthesia was achieved, a line ar incision was made over the back overlying an area of cellulitis and erythematous change down to th e subcutaneous tissues. I dissected down to expose an abscess, which was found to be multiloculated on digital examination. I found that it tracked somewhat toward the patient's left side and as such I T'd out this incision by making a lateral incision along this plane with the 10-blade scalpel. I t hen dissected down to the abscess cavity, completely unroofed it and marsupialized the area. After a ppropriately scraping and cleansing all necrotic tissue in size taking cultures at this time. I irri gated the area copiously, achieved hemostasis with electrocautery and placed packing into the wound a nd sterile dressing was placed over top. The patient tolerated the procedure well without evidence o f complication and transferred back in good condition. All counts were correct at the end of the shane eAleksandar MERCADO/JENNIFER Voice ID: [id number] Report ID: [id number]
[2018-03-24] MEDS ORDERED: NA CHLORIDE 0.9% 250 ML IV ONE (17:30)
[2018-03-24] MEDS: ENOXAPARIN 40 MG/0.4 ML SQ SCH (18:06)
[2018-03-25] MEDS: MORPHINE 2 MG/ML SYR IV PRN ×2 (03:46→10:16)
[2018-03-25] MEDS: METOPROLOL XL 25 MG TAB PO SCH (05:14)
[2018-03-25 06:33] LABS: BUN Blood Urea Nitrogen 12 mg/dL (7-18); Bicarbonate 31 mmol/L (21-32); Glucose Level 92 mg/dL (74-106); Potassium 4.2 mmol/L (3.5-5.1); Sodium Level 137 mmol/L (136-145)
[2018-03-25 06:47] LABS: Eosinophils % 4.8 % (0-4.4); Hematocrit 39.6 % (39.6-49.0); Lymphocytes % 20.3 % (15.3-44.8); MCH 29.5 pg (27.0-35.0); MCV 84.6 fL (80-100); MPV 8.7 fL (7.6-11.3); Monocytes % 11.5 % (3.3-12.3); RBC Red Blood Cell Count 4.68 M/uL (4.33-5.43)
[2018-03-25 06:48] LABS: Absolute Lymphocytes (CBC) 2.5 K/uL (0.7-4.9); Absolute Monocytes 1.4 K/uL (0.1-1.3); Absolute Neutrophil 7.9 K/uL (1.8-8.0); Basophils % 0.5 % (0-1.3)
[2018-03-25] MEDS: PANTOPRAZOLE 40MG TABLET PO SCH (08:47)
[2018-03-25] MEDS: ACETAMINOPHEN 325 MG TABLET PO PRN (08:47)
--- NOTE | 2018-03-25 10:01 | P.DS ---
Admission Date: 03/23/18 Discharge Date: 03/25/18 Primary Care Provider: Rosa Hammond Disposition: ROUTINE DISCHARGE Discharge Condition: GOOD Reason for Admission: skin abcess - Problems (1) Abscess of skin Onset Date: 03/24/18 Current Visit: Yes Status: Acute Qualifiers: Site of cutaneous abscess: trunk (2) Tachyarrhythmia Onset Date: 03/24/18 Current Visit: Yes Status: Acute (3) Body mass index (BMI) of 50-59.9 in adult Onset Date: 03/24/18 Current Visit: Yes Status: Acute Brief History of Present Illness: Patient is a gentleman who Sees Kinjal Hammond. He has been having a growing swelling on his back. He has been having fevers at home. His tmax was 102. Came to the office and Mrs Hammond noticed a hard swelling a fluid filled pocket. 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 he does struggle with his weight. He has had diabetic range sugars in the past as well. Hospital Course: Patient was taken to the OR by Dr. Olson. Will discharge on bactrim. Discussed pain management. Will get home health for wound care Vital Signs/Physical Exam: Temp Pulse Resp BP Pulse Ox 97.8 F 67 18 109/63 95 03/25/18 08:00 03/25/18 08:00 03/25/18 08:00 03/25/18 08:00 03/25/18 08:00 Laboratory Data at Discharge: WBC 12.6 K/uL (4.3-10.9) H 03/25/18 06:00 Hgb 13.8 g/dL (13.6-17.9) 03/25/18 06:00 Hct 39.6 % (39.6-49.0) 03/25/18 06:00 Plt Count 195 K/uL (152-406) 03/25/18 06:00 PT 13.0 SECONDS (9.5-12.5) H 03/23/18 17:10 INR 1.10 03/23/18 17:10 Sodium 137 mmol/L (136-145) 03/25/18 06:00 Potassium 4.2 mmol/L (3.5-5.1) 03/25/18 06:00 BUN 12 mg/dL (7-18) 03/25/18 06:00 Creatinine 0.80 mg/dL (0.55-1.3) 03/25/18 06:00 Glucose 92 mg/dL (74-106) 03/25/18 06:00 Magnesium 2.0 mg/dL (1.8-2.4) 03/24/18 05:27 Total Bilirubin 0.8 mg/dL (0.2-1.0) 03/23/18 17:10 AST 13 U/L (15-37) L 03/23/18 17:10 ALT 29 U/L (12-78) 03/23/18 17:10 Alkaline Phosphatase 106 U/L (45-117) 03/23/18 17:10 Troponin I < 0.02 ng/mL (0.0-0.045) 03/24/18 03:09 Triglycerides 80 mg/dL (<150) 03/24/18 05:27 Cholesterol 175 mg/dL (<200) 03/24/18 05:27 HDL Cholesterol 37 mg/dL (40-60) L 03/24/18 05:27 Cholesterol/HDL Ratio 4.73 03/24/18 05:27 Home Medications: Smz./Tmp. [Bactrim Ds 800 MG/160 MG] 1 tab PO BID 10 Days #20 tab 03/25/18 Tramadol HCl [Ultram] 50 mg PO Q8HP PRN 5 Days #20 tablet 03/25/18 New Medications: Smz./Tmp. [Bactrim Ds 800 MG/160 MG] 1 tab PO BID 10 Days #20 tab Tramadol HCl [Ultram] 50 mg PO Q8HP PRN 5 Days #20 tablet PRN Reason: Pain Scale 5-7 (Moderate) Diet: Regular Activity: Ad tamiko Followup: Kinjal Hammond NP [Primary Care Provider] - 1-2 Weeks Jorge Olson MD [ACTIVE - CAN ADMIT] - 1 Week
[2018-03-25 12:43] VITALS: BP 107/52; TEMP 97.1
== END 2018-03-25 12:48 | disposition home or self-care (01) ==
LOC: 4TH 13:33
PROVIDERS: ADMIT Internal Medicine; ATTEND Internal Medicine
PROC: 0J970ZZ Drainage of Back Subcutaneous Tissue and Fascia, Open Approach (ICD-10-PCS; principal; 2018-03-24 11:45)
DX: L02.212 Cutaneous abscess of back [any part, except buttock and flank] (principal); E66.01 Morbid (severe) obesity due to excess calories; Z68.43 Body mass index [BMI] 50.0-59.9, adult; Z86.14 Personal history of Methicillin resistant Staphylococcus aureus infection; R00.0 Tachycardia, unspecified; I10 Essential (primary) hypertension; Z88.0 Allergy status to penicillin; L03.312 Cellulitis of back [any part except buttock and flank]; Z87.891 Personal history of nicotine dependence; I49.9 Cardiac arrhythmia, unspecified
CPT/HCPCS: 36415; 80048; 80053; 80061; 81001; 83036; 83525; 83735; 84443; 84484; 85025; 85610; 87070; 87075; 87077; 87086; 87088; 87186; 87205; 93005; G0378; J1650; J2175; J2250; J2270; J2405; J3010; J3370

== ENCOUNTER 2024-02-13 19:19 | Emergency (ER) | payer OTHER ==
[2024-02-13] MEDS ORDERED: CEPHALEXIN 250 MG CAP ONE (20:37)
[2024-02-13] MEDS ORDERED: IBUPROFEN 400 MG TAB ONE (20:37)
[2024-02-13] MEDS ORDERED: SMZ./TMP. 800/160 MG TABLET ONE (20:37)
[2024-02-13] MEDS ORDERED: DIPHENHYDRAMINE 25 MG TAB/CAP ONE (20:38)
[2024-02-13] MEDS ORDERED: ONDANSETRON 4 MG (ODT) TAB ONE (20:38)
[2024-02-13] MEDS ORDERED: NA CHLORIDE 0.9% 1,000 ML ONE (20:39)
[2024-02-13] MEDS ORDERED: TRAMADOL HCL 50 MG TAB ONE (20:39)
[2024-02-13 21:12] LABS: Absolute Basophils 0.1 K/uL (0-0.5); Absolute Eosinophils 0.3 K/uL (0-0.5); Absolute Lymphocytes (CBC) 2.3 K/uL (0.7-4.9); Absolute Monocytes 1.1 K/uL (0.1-1.3); Absolute Neutrophil 15.1 K/uL (1.8-8.0); Basophils % 0.7 % (0-1.3); Eosinophils % 1.7 % (0-4.4); Hematocrit 43.1 % (39.6-49.0); Hemoglobin 14.8 g/dL (13.6-17.9); MCHC 34.2 g/dL (32.0-36.0); MCV 87.8 fL (80-100); MPV 8.5 fL (7.6-11.3); Monocytes % 5.8 % (3.3-12.3); Neutrophils % 79.8 % (41.7-73.7); Platelets 176 thou/uL (152-406); RBC Red Blood Cell Count 4.91 M/uL (4.33-5.43); Red Cell Distribution Width 13.4 % (12.1-15.2)
[2024-02-13 21:21] LABS: PT Prothrombin Time 12.8 SECONDS (9.4-12.5); Protime INR 1.15
[2024-02-13 21:34] LABS: Albumin 3.5 g/dL (3.4-5.0); Anion Gap 8.6 mEq/L (5.0-15.0); Bilirubin Direct 0.4 mg/dL (0-0.2); Bilirubin Indirect, Calculated 0.8 mg/dL (0.2-0.8); Bilirubin Total 1.2 mg/dL (0.2-1.0); Globulin 3.5 g/dL (2.3-3.5); Magnesium 2.1 mg/dL (1.6-2.4); Potassium 3.6 mEq/L (3.5-5.1); Troponin High Sensitivity 6.2 pg/mL (<58.9)
--- NOTE | 2024-02-13 21:52 | RAD REPORT ---
EXAM DESCRIPTION: [place] Single View02/13/2024 9:12 pm CLINICAL HISTORY: CHEST PAIN COMPARISON: Chest Single View dated 10/20/2017 TECHNIQUE: Portable AP view of the chest. FINDINGS: The lungs are clear. No pneumothorax or effusion. The cardiomediastinal contours are unre markable. IMPRESSION: No acute cardiopulmonary process.
--- NOTE | 2024-02-14 00:20 | EDPHYS ---
Physician Documentation [facility] Name: Zeferino Fuentes Age: 38 yrs Sex: Male : 1985 Arrival Date: 02/13/2024 Time: 19:19 Bed 9 Private MD: ED Physician Danny Mckinney HPI: 02/13 00:17 This 38 yrs old Male presents to ER via Ambulatory with complaints of Leg sp4 Pain, Fever, Chest Congestion. 06:14 Patient presents with primary complaint of left lower extremity redness pain and sp4 swelling and also secondary complaint of chest discomfort. Historical: - Allergies: 02/12 19:51 PENICILLINS; tl4 - Home Meds: 19:51 None [Active]; tl4 - PMHx: 19:51 Hypertension; irregular heart beat; tl4 - PSHx: 19:51 Adrenalectomy; tl4 - Immunization history:: Adult Immunizations unknown. - Infectious Disease History:: Denies. - Social history:: Smoking status: Patient reports the use of cigarette tobacco products, smokes one-half pack cigarettes per day. - Family history:: not pertinent. ROS: 02/13 06:14 Constitutional: Negative for fever, chills, and weight loss, positive for chest sp4 discomfort positive for left lower extremity redness and cellulitis Eyes: Negative for injury, pain, redness, and discharge, All other systems are negative, Exam: 06:14 Constitutional: This is a well developed, well nourished patient who is awake, alert, sp4 and in no acute distress. Head/Face: Normocephalic, atraumatic. Eyes: Pupils equal round and reactive to light, extra-ocular motions intact. Lids and lashes normal. Conjunctiva and sclera are not injected. Cornea within normal limits. Periorbital areas with no swelling, redness, or edema. ENT: Nares patent. No nasal discharge, no septal abnormalities noted. Tympanic membranes are normal and external auditory canals are clear. Oropharynx with no redness, swelling, or masses, exudates, or evidence of obstruction, uvula midline. Mucous membranes moist. Neck: Trachea midline, no thyromegaly or masses palpated, and no cervical lymphadenopathy. Supple, full range of motion without nuchal rigidity, or vertebral point tenderness. Chest/axilla: Normal chest wall appearance and motion. Nontender with no deformity. No lesions are appreciated. Cardiovascular: Regular rate and rhythm with a normal S1 and S2. No gallops, murmurs, or rubs. Normal PMI, no JVD. No pulse deficits. Respiratory: Lungs have equal breath sounds bilaterally, clear to auscultation and percussion. No rales, rhonchi or wheezes noted. No increased work of breathing, no retractions or nasal flaring. Abdomen/GI: Soft, with normal bowel sounds. No distension or tympany. No guarding or rebound. No evidence of tenderness throughout. Back: No spinal tenderness. No costovertebral tenderness. Skin: Warm, dry with normal turgor. Normal color with no rashes, no lesions, and no evidence of cellulitis. Positive for left lower extremity redness pain and swelling and area of cellulitis to anterior left lower extremity MS/ Extremity: Pulses equal, no cyanosis. Neurovascular intact. Full, normal range of motion. Neuro: Awake and alert, GCS 15, oriented to person, place, time, and situation. Cranial nerves II-XII grossly intact. Motor strength 5/5 in all extremities. Sensory grossly intact. Psych: Awake, alert, with orientation to person, place and time. Behavior, mood, and affect are within normal limits 06:14 ECG was reviewed by the Attending Physician. EKG at 0016 reveals normal sinus rhythm at the rate of 64, normal EKG Vital Signs: 02/12 19:48 BP 137 / 76; Pulse 87; Resp 18; Temp 97(O); Pulse Ox 98% on R/A; Weight 158.76 kg; tl4 Height 6 ft. 2 in. ; Pain 5/10; 21:00 BP 161 / 101; Pulse 73; Resp 16; Pulse Ox 98% ; jj7 23:39 BP 142 / 86; Pulse 73; Pulse Ox 99% on R/A; ss 19:48 Body Mass Index 44.94 (158.76 kg, 187.96 cm) tl4 19:48 Pain Scale: Adult tl4 Lamar Coma Score: 02/13 06:14 Eye Response: spontaneous(4). Motor Response: obeys commands(6). Verbal Response: sp4 oriented(5). Total: 15. MDM: 02/12 20:17 Patient medically screened. sp4 02/13 06:16 Differential diagnosis: contusion, abrasion, tendonitis. Data reviewed: vital signs, sp4 nurses notes, lab test result(s), EKG, radiologic studies, plain films. ED course: EXAM DESCRIPTION: Deidre Single View02/13/2024 9:12 pm CLINICAL HISTORY: CHEST PAIN COMPARISON: Chest Single View dated 10/20/2017 TECHNIQUE: Portable AP view of the chest. FINDINGS: The lungs are clear. No pneumothorax or effusion. The cardiomediastinal contours are unremarkable. IMPRESSION: No acute cardiopulmonary process.. ED course: Patient will be prescribed medications to manage cellulitis. Will be referred to Dr. Groves with cardiology for further evaluation of chest pains.. 02/12 20:27 Order name: Basic Metabolic Panel; Complete Time: 23:24 sp4 02/12 20:27 Order name: CBC with Diff; Complete Time: 23:24 sp4 02/12 20:27 Order name: LFT's; Complete Time: 23:24 sp4 02/12 20:27 Order name: Magnesium; Complete Time: 23:24 sp4 02/12 20:27 Order name: NT PRO-BNP; Complete Time: 23:24 sp4 02/12 20:27 Order name: PT-INR; Complete Time: 23:24 sp4 02/12 20:27 Order name: Troponin HS; Complete Time: 23:24 sp4 02/12 20:29 Order name: CRP sp4 02/12 20:29 Order name: TSH sp4 02/12 20:29 Order name: T4 Free sp4 02/12 23:24 Order name: Troponin High Sensitivity; Complete Time: 00:11 sp4 02/12 20:27 Order name: XRAY Chest (1 view); Complete Time: 23:24 sp4 02/12 20:27 Order name: EKG; Complete Time: 20:28 sp4 02/13 00:17 Order name: EKG; Complete Time: 00:18 sp4 02/12 20:27 Order name: Cardiac monitoring; Complete Time: 21:03 sp4 02/12 20:27 Order name: EKG - Nurse/Tech; Complete Time: 21:03 sp4 02/12 20:27 Order name: IV Saline Lock; Complete Time: 21:03 sp4 02/12 20:27 Order name: Labs collected and sent; Complete Time: 21:03 sp4 02/12 20:27 Order name: O2 Per Protocol; Complete Time: 21: sp4 02/12 20:27 Order name: O2 Sat Monitoring; Complete Time: : sp4 02/13 00:17 Order name: EKG - Nurse/Tech; Complete Time: 00:23 sp4 EC:14 Rate is 64 beats/min. Rhythm is regular, Normal Sinus Rhythm. QRS [place] is Normal. [place] sp4 interval is normal. QRS interval is normal. QT interval is normal. No Q waves. T waves are Normal. No ST changes noted. Clinical impression: No evidence of ischemia. Interpreted by me. Reviewed by me. Administered Medications: 02/12 20:50 Drug: Ondansetron PO 4 mg PO once Route: PO; jj7 02/13 00:21 Follow up: Response: No adverse reaction 02/12 21:02 Drug: Trimethoprim-Sulfamethoxazole PO (160 mg-800 mg (DS) 1 tablet PO once Route: PO; jj7 02/13 00:22 Follow up: Response: No adverse reaction 02/12 21:02 Drug: Cephalexin PO 500 mg PO once Route: PO; jj7 02/13 00:22 Follow up: Response: No adverse reaction 02/12 21:02 Drug: diphenhydrAMINE PO 50 mg PO once Route: PO; jj7 02/13 00:22 Follow up: Response: No adverse reaction 02/12 21:02 Drug: Ibuprofen PO 800 mg PO once Route: PO; jj7 02/13 00:22 Follow up: Response: No adverse reaction 02/12 21:02 Drug: traMADol PO 100 mg PO once Route: PO; jj7 02/13 00:21 Follow up: Response: No adverse reaction 02/12 21:04 Drug: NS 0.9% IV 1000 ml IV at 1 bolus Per protocol; 1000 mL bolus Route: IV; Rate: 1 jj7 bolus; Site: left hand; 02/13 00:36 Follow up: IV Status: Completed infusion; IV Intake: 1000ml ss Disposition Summary: 02/14/24 00:20 Discharge Ordered Notes: Location: Home sp4 Problem: new sp4 Symptoms: have improved sp4 Condition: Stable sp4 Diagnosis - Cellulitis of left lower limb sp4 - Chest pain, unspecified sp4 - Cardiac chest pain, anterior left lower leg cellulitis sp4 Followup: sp4 - With: Herber Groves MD - When: 7 - 10 days - Reason: Recheck today's complaints Discharge Instructions: - Discharge Summary Sheet sp4 - Cellulitis, Adult, [id number] sp4 Forms: - Patient Portal Instructions sp4 Prescriptions: - Cephalexin 500 mg Oral Capsule - take 1 capsule ORAL route every 6 hours for 10 days; 40 capsule; Refills: 0, sp4 Product Selection Permitted - Ibuprofen 800 mg Oral Tablet - take 1 tablet ORAL route every 8 hours As needed take with food; 30 tablet; sp4 Refills: 0, Product Selection Permitted - Tramadol 50 mg Oral Tablet - take 1 tablet ORAL route every 8 hours as needed; 12 tablet; Refills: 0, sp4 Product Selection Permitted - Bactrim DS 800-160 mg Oral Tablet - take 1 tablet ORAL route every 12 hours for 10 days; 20 tablet; Refills: 0, sp4 Product Selection Permitted - ondansetron 8 mg Oral Tablet,disintegrating - take 1 tablet ORAL route every 8 hours PRN nausea; 30 tablet; Refills: 0, sp4 Product Selection Permitted Signatures: Dispatcher [employer] Nuha Thompson RN RN jj7 Danny Mckinney MD MD sp4 Edgardo Whipple RN RN tl4 Cheryle Salvador RN ss
--- NOTE | 2024-02-14 00:20 | ER ---
Nurse's Notes [facility] Name: Zeferino Fuentes Age: 38 yrs Sex: Male : 1985 Arrival Date: 02/13/2024 Time: 19:19 Bed 9 Private MD: Diagnosis: Cellulitis of left lower limb;Chest pain, unspecified;Cardiac chest pain, anterior left lower leg cellulitis Presentation: 02/12 19:48 Chief complaint: Patient states: Pt states he was evaluated in this ED and diagnosed tl4 with left lower leg cellulitis on 01/25/24. Pt states redness and pain returned today. Pt states he has not felt well all day, c/o fever, congestion. Coronavirus screen: congestion, fever. Ebola Screen: No symptoms or risks identified at this time. Initial Sepsis Screen: Does the patient meet any 2 criteria? No. Patient's initial sepsis screen is negative. Does the patient have a suspected source of infection? No. Patient's initial sepsis screen is negative. Risk Assessment: Do you want to hurt yourself or someone else? Patient reports no desire to harm self or others. Onset of symptoms was February 13, 2024 at 17:00. 19:48 Method Of Arrival: Ambulatory tl4 19:48 Acuity: MICHAEL 3 tl4 Triage Assessment: 19:52 General: Appears uncomfortable, Behavior is calm, cooperative. Pain: Complains of pain tl4 in left leg. EENT: No signs and/or symptoms were reported regarding the EENT system. Neuro: Level of Consciousness is awake, alert, obeys commands, Oriented to person, place, time, situation, Moves all extremities. Full function Gait is steady, Speech is normal. Cardiovascular: Capillary refill < 3 seconds Patient's skin is warm and dry. Respiratory: Airway is patent Respiratory effort is even, unlabored, Respiratory pattern is regular, symmetrical. GI: No signs and/or symptoms were reported involving the gastrointestinal system. : No signs and/or symptoms were reported regarding the genitourinary system. Derm: redness to left lower extremity. Musculoskeletal: No signs and/or symptoms reported regarding the musculoskeletal system. 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 - Infectious Disease History:: Denies. - Social history:: Smoking status: Patient reports the use of cigarette tobacco products, smokes one-half pack cigarettes per day. - Family history:: not pertinent. Screenin:10 [facility] ED Fall Risk Assessment (Adult) History of falling in the last 3 months, jj7 including since admission No falls in past 3 months (0 pts) Confusion or Disorientation No (0 pts) Intoxicated or Sedated No (0 pts) Impaired Gait No (0 pts) Mobility Assist Device Used No (0 pt) Altered Elimination No (0 pt) Score/Fall Risk Level 0 - 2 = Low Risk Oriented to surroundings, Maintained a safe environment, Educated pt \T\ family on fall prevention, incl call for assistance when getting out of bed. Abuse screen: Denies threats or abuse. Nutritional screening: No deficits noted. Tuberculosis screening: No symptoms or risk factors identified. Assessment: 20:10 General: Appears in no apparent distress. comfortable, Behavior is calm, cooperative, jj7 appropriate for age. Pain: Complains of pain in left grubbs. Derm: Skin is red. 23:41 Reassessment: Patient appears in no apparent distress at this time. Patient and/or ss family updated on plan of care and expected duration. Pain level reassessed. Patient is alert, oriented x 3, equal unlabored respirations, skin warm/dry/pink. Repeat troponin sent at this time. Awaiting results. Call light remains within reach. 02/13 00:36 Reassessment: Patient appears in no apparent distress at this time. Patient and/or ss family updated on plan of care and expected duration. Pain level reassessed. Patient is alert, oriented x 3, equal unlabored respirations, skin warm/dry/pink. Patient states feeling better. Vital Signs: 02/12 19:48 BP 137 / 76; Pulse 87; Resp 18; Temp 97(O); Pulse Ox 98% on R/A; Weight 158.76 kg; tl4 Height 6 ft. 2 in. ; Pain 5/10; 21:00 BP 161 / 101; Pulse 73; Resp 16; Pulse Ox 98% ; jj7 23:39 BP 142 / 86; Pulse 73; Pulse Ox 99% on R/A; ss 19:48 Body Mass Index 44.94 (158.76 kg, 187.96 cm) tl4 19:48 Pain Scale: Adult tl4 Lamar Coma Score: 02/13 06:14 Eye Response: spontaneous(4). Motor Response: obeys commands(6). Verbal Response: sp4 oriented(5). Total: 15. ED Course: 02/12 19:24 Patient arrived in ED. gm2 19:51 Triage completed. tl4 19:53 Arm band placed on right wrist. tl4 20:07 Danny Mckinney MD is Attending Physician. sp4 20:07 Nuha Resendiz RN is Primary Nurse. jj7 20:10 Patient has correct armband on for positive identification. Placed in gown. Bed in low jj7 position. Call light in reach. Adult w/ patient. Provided Education on: USE OF CALL ROCHE. Client placed on continuous cardiac and pulse oximetry monitoring. NIBP monitoring applied. Warm blanket given. 21:01 Inserted saline lock: 20 gauge in right hand, using aseptic technique. Blood collected. sa1 Flushed with 10 mL NS Missed attempt(s): 20 gauge in right antecubital area. 21:03 Basic Metabolic Panel Sent. jj7 21:03 CBC with Diff Sent. jj7 21:03 LFT's Sent. jj7 21:03 Magnesium Sent. jj7 21:03 NT PRO-BNP Sent. jj7 21:03 PT-INR Sent. jj7 21:03 Troponin HS Sent. jj7 21:04 T4 Free Sent. jj7 21:04 TSH Sent. jj7 21:05 CRP Sent. jj7 21:14 XRAY Chest (1 view) In Process Unspecified. EDMS 02/13 00:18 Herber Groves MD is Referral Physician. sp4 00:36 No provider procedures requiring assistance completed. IV discontinued, intact, ss bleeding controlled, No redness/swelling at site. Pressure dressing applied. Administered Medications: 02/12 20:50 Drug: Ondansetron PO 4 mg PO once Route: PO; jj7 02/13 00:21 Follow up: Response: No adverse reaction 02/12 21:02 Drug: Trimethoprim-Sulfamethoxazole PO (160 mg-800 mg (DS) 1 tablet PO once Route: PO; jj7 02/13 00:22 Follow up: Response: No adverse reaction 02/12 21:02 Drug: Cephalexin PO 500 mg PO once Route: PO; jj7 02/13 00:22 Follow up: Response: No adverse reaction 02/12 21:02 Drug: diphenhydrAMINE PO 50 mg PO once Route: PO; jj7 02/13 00:22 Follow up: Response: No adverse reaction 02/12 21:02 Drug: Ibuprofen PO 800 mg PO once Route: PO; jj7 02/13 00:22 Follow up: Response: No adverse reaction 02/12 21:02 Drug: traMADol PO 100 mg PO once Route: PO; jj7 02/13 00:21 Follow up: Response: No adverse reaction 02/12 21:04 Drug: NS 0.9% IV 1000 ml IV at 1 bolus Per protocol; 1000 mL bolus Route: IV; Rate: 1 jj7 bolus; Site: left hand; 02/13 00:36 Follow up: IV Status: Completed infusion; IV Intake: 1000ml Medication: 02/12 20:10 VIS not applicable for this client. jj7 Intake: 02/13 00:36 IV: 1000ml; Total: 1000ml. Outcome: 00:20 Discharge ordered by . spJoni 00:36 Discharged to home ambulatory, 00:36 Condition: good 00:36 Discharge instructions given to patient, family, Instructed on discharge instructions, follow up and referral plans. medication usage, Demonstrated understanding of instructions, follow-up care, medications, Prescriptions given X x5 00:37 Patient left the ED. Signatures: Dispatcher [employer] EDMS Cheryle Salvador RN RN ss Nuha Resendiz RN RN jj7 Danny Mckinney MD MD sp4 Jocy Foster Toni RN RN tl4 [facility]
[2024-02-14 02:32] LABS: C-Reactive Protein 32.5 mg/L (<3.00); Thyroid Stimulating Hormone 1.41 uIU/mL (0.358-3.740)
[2024-02-14 04:56] VITALS: TEMP 97
[2024-02-14 05:06] VITALS: BP 142/86; O2SAT 99
--- NOTE | 2024-02-16 17:05 | EKG ---
Test Date: 2024-02-14 Test Time: 00:16:46 [employer]: ANGY MEASUREMENT RESULTS: Intervals: Rate: 64 KS: 164 QRSD: 110 QT: 424 QTc: 437 [place]: P: 70 KS: 164 QRS: 59 T: 44 INTERPRETIVE STATEMENTS: Normal sinus rhythm Normal ECG Compared to ECG 02/13/2024 20:49:14 No significant changes Electronically Signed On 02-16-24 16:59:03 CDT by Herber Groves
--- NOTE | 2024-02-16 17:06 | EKG ---
Test Date: 2024-02-13 Test Time: 20:49:14 Pattern Maker: MEASUREMENT RESULTS: Intervals: Rate: 76 SD: 164 QRSD: 106 QT: 388 QTc: 436 [place]: P: 52 SD: 164 QRS: 61 T: 46 INTERPRETIVE STATEMENTS: Normal sinus rhythm Low voltage QRS Borderline ECG Compared to ECG 03/23/2018 16:32:48 No significant changes Electronically Signed On 02-16-24 16:59:09 CDT by Herber Groves
== END 2024-02-14 00:37 | disposition home or self-care (01) ==
LOC: ER 19:19
DX: L03.116 Cellulitis of left lower limb (principal); R07.89 Other chest pain
CPT/HCPCS: 85025; 80048; 36415; 83735; 85610; 80076; 84443; 84484 ×2; 84439; 83880; 86140; 71045; Q0162; J7030; 93005; 96360; 96361; 99284

== ENCOUNTER 2024-03-23 15:45 | Emergency (ER) | payer OTHER ==
--- NOTE | 2024-03-23 16:25 | EDPHYS ---
Physician Documentation [facility] Name: Zeferino Fuentes Age: 38 yrs Sex: Male : 1985 Arrival Date: 03/23/2024 Time: 15:45 Bed DX4 Private MD: ED Physician Zurdo Contreras HPI: 03/23 16:21 This 38 yrs old Male presents to ER via Unassigned with complaints of Leg Swelling - kb Left with redness. 16:21 Pt is a 38 year old male who presents with redness, warmth and swelling to left grubbs kb that started 3 hours [employer]. States he has had cellulitis to that area twice in the last few months. Has taken bactrim and keflex in the past and it took it away completely. Denies fever. Historical: - Allergies: 16:33 PENICILLINS; kb3 - Home Meds: 16:33 None [Active]; kb3 - PMHx: 16:33 Hypertension; irregular heart beat; kb3 - PSHx: 16:33 Adrenalectomy; kb3 - Immunization history:: Adult Immunizations up to date, Client reports having NOT received the Covid vaccine. Last tetanus immunization: up to date. - Infectious Disease History:: Denies. - Social history:: Smoking status: Patient reports the use of cigarette tobacco products, smokes one pack cigarettes per day. ROS: 16:20 Constitutional: As per HPI kb Exam: 16:20 Constitutional: This is a well developed, well nourished patient who is awake, alert, kb and in no acute distress. Head/Face: Normocephalic, atraumatic. ENT: Moist Mucous membranes Cardiovascular: Regular rate Respiratory: Respirations even and unlabored. No increased work of breathing. Talking in full sentences MS/ Extremity: Pulses equal, no cyanosis. Neurovascular intact. Full, normal range of motion. Neuro: Awake and alert, GCS 15, oriented to person, place, time, and situation. Moves all extremities. Normal gait. 16:20 Skin: cellulitis, that is mild, on the left grubbs, Vital Signs: 16:27 BP 153 / 78; Pulse 100; Resp 17; Temp 97.6; Pulse Ox 98% on R/A; bc6 16:31 Weight 158.76 kg; Height 6 ft. 2 in. ; Pain 2/10; kb3 16:31 Body Mass Index 44.94 (158.76 kg, 187.96 cm) kb3 16:31 Pain Scale: Adult kb3 MDM: 15:49 Patient medically screened. kb 16:20 Differential diagnosis: abscess, allergic reaction, cellulitis, insect bite. Data kb reviewed: vital signs, nurses notes. Test considered but Not performed: Labs: cbc, cmp, blood cultures considered but symptoms started 3 hours ago, pt is nontoxic in appearance and reports oral antibiotics have worked in the past. Pt educated on strict return precautions and has an appt with Dr Zaman to follow up on Friday. Counseling: I had a detailed discussion with the patient and/or guardian regarding the historical points, exam findings, and any diagnostic results supporting the discharge/admit diagnosis, the need for outpatient follow up, a family practitioner, to return to the emergency department if symptoms worsen or persist or if there are any questions or concerns that arise at home. Administered Medications: 16:24 CANCELLED (Physician Discretion): [id number] mg PO once kb 16:49 Drug: Trimethoprim-Sulfamethoxazole PO (160 mg-800 mg (DS) 1 tablet PO once Route: PO; kb3 16:49 Follow up: Response: Medication administered at discharge. kb3 16:49 Drug: Cephalexin PO 500 mg PO once Route: PO; kb3 16:49 Follow up: Response: Medication administered at discharge. kb3 Disposition Summary: 03/23/24 16:24 Discharge Ordered Notes: Location: Home kb Condition: Stable kb Diagnosis - Cellulitis of left lower limb kb Followup: kb - With: Emergency Department - When: As needed - Reason: Worsening of condition Followup: kb - With: Private Physician - When: 2 - 3 days - Reason: Recheck today's complaints, Continuance of care, Re-evaluation by your physician Discharge Instructions: - Discharge Summary Sheet kb - Cellulitis, Adult, [id number] kb Forms: - Medication Reconciliation Form kb - Antibiotic Education kb - Prescription Opioid Use kb - Patient Portal Instructions kb - Leadership Thank You Letter kb Prescriptions: - Cephalexin 500 mg Oral Capsule - take 1 capsule ORAL route every 8 hours for 10 days; 30 capsule; Refills: 0, kb Product Selection Permitted - Bactrim DS 800-160 mg Oral Tablet - take 1 tablet ORAL route every 12 hours for 10 days; 20 tablet; Refills: 0, kb Product Selection Permitted Addendum: 03/27/2024 15:43 Co-signature as Attending Physician, Zurdo Contreras MD I agree with the assessment and c mckeon plan of care. Signatures: Suzie Hankins, RENE-C TOP DISTRIBUTION EXECUTIVE-Zurdo Callahan MD MD cha Bradberry, Kelly, RN RN kb3 Corrections: (The following items were deleted from the chart) 03/23 16:24 16:24 Ciprofloxacin PO 500 mg PO once ordered. kb kb
[2024-03-23] MEDS ORDERED: CEPHALEXIN 250 MG CAP ONE (16:40)
[2024-03-23] MEDS ORDERED: SMZ./TMP. 800/160 MG TABLET ONE (16:40)
--- NOTE | 2024-03-23 16:52 | ER ---
Nurse's Notes [facility] Name: Zeferino Fuentes Age: 38 yrs Sex: Male : 1985 Arrival Date: 03/23/2024 Time: 15:45 Bed DX4 Private MD: Diagnosis: Cellulitis of left lower limb Presentation: 03/23 16:31 Chief complaint: Patient states: redness and swelling to LLE-similar to previous kb3 episodes. Coronavirus screen: Vaccine status: Patient reports being unvaccinated. Client denies travel out of the [place] in the last 14 days. Ebola Screen: Patient negative for fever greater than or equal to 101.5 degrees Fahrenheit, and additional compatible Ebola Virus Disease symptoms Patient denies exposure to infectious person. Patient denies travel to an Ebola-affected area in the 21 days before illness onset. Initial Sepsis Screen: Does the patient meet any 2 criteria? No. Patient's initial sepsis screen is negative. Does the patient have a suspected source of infection? No. Patient's initial sepsis screen is negative. Risk Assessment: Do you want to hurt yourself or someone else? Patient reports no desire to harm self or others. Onset of symptoms was March 23, 2024 at 13:00. 16:31 Method Of Arrival: Ambulatory 3 16:31 Acuity: MICHAEL 4 kb3 Triage Assessment: 16:33 General: Appears in no apparent distress. Behavior is calm, cooperative. Pain: kb3 Complains of pain in left grubbs Pain does not radiate. Pain currently is 3 out of 10 on a pain scale. Quality of pain is described as burning, pressure, Pain began 3 hours ago. Derm: Skin is intact, Skin is dry, Skin is red, Skin temperature is warm Softball-sized area of redness to left lower grubbs. Historical: - Allergies: 16:33 PENICILLINS; kb3 - Home Meds: 16:33 None [Active]; kb3 - PMHx: 16:33 Hypertension; irregular heart beat; kb3 - PSHx: 16:33 Adrenalectomy; kb3 - Immunization history:: Adult Immunizations up to date, Client reports having NOT received the Covid vaccine. Last tetanus immunization: up to date. - Infectious Disease History:: Denies. - Social history:: Smoking status: Patient reports the use of cigarette tobacco products, smokes one pack cigarettes per day. Screenin:35 [facility] ED Fall Risk Assessment (Adult) History of falling in the last 3 months, kb3 including since admission No falls in past 3 months (0 pts) Confusion or Disorientation No (0 pts) Intoxicated or Sedated No (0 pts) Impaired Gait No (0 pts) Mobility Assist Device Used No (0 pt) Altered Elimination No (0 pt) Score/Fall Risk Level 0 - 2 = Low Risk Oriented to surroundings. Abuse screen: Denies threats or abuse. Denies injuries from another. Nutritional screening: No deficits noted. Tuberculosis screening: No symptoms or risk factors identified. Assessment: 16:35 General: Appears in no apparent distress. Behavior is calm, cooperative. General: See kb3 triage assessment. Vital Signs: 16:27 BP 153 / 78; Pulse 100; Resp 17; Temp 97.6; Pulse Ox 98% on R/A; bc6 16:31 Weight 158.76 kg; Height 6 ft. 2 in. ; Pain 2/10; kb3 16:31 Body Mass Index 44.94 (158.76 kg, 187.96 cm) kb3 16:31 Pain Scale: Adult kb3 ED Course: 15:47 Patient arrived in ED. ra3 15:49 Suzie Hankins FNP-C [facility]. kb 15:49 Zurdo Contreras MD is Attending Physician. kb 16:33 Triage completed. kb3 16:33 Arm band placed on right wrist. kb3 16:35 Patient has correct armband on for positive identification. Provided Education on: Plan kb3 of care. 16:35 No provider procedures requiring assistance completed. Patient did not have IV access kb3 during this emergency room visit. Administered Medications: 16:24 CANCELLED (Physician Discretion): [id number] mg PO once kb 16:49 Drug: Trimethoprim-Sulfamethoxazole PO (160 mg-800 mg (DS) 1 tablet PO once Route: PO; kb3 16:49 Follow up: Response: Medication administered at discharge. kb3 16:49 Drug: Cephalexin PO 500 mg PO once Route: PO; kb3 16:49 Follow up: Response: Medication administered at discharge. kb3 Medication: 16:35 VIS not applicable for this client. kb3 Outcome: 16:24 Discharge ordered by . kb 16:50 Discharged to home ambulatory, kb3 16:50 Condition: stable 16:50 Discharge instructions given to patient, Instructed on discharge instructions, follow up and referral plans. medication usage, Demonstrated understanding of instructions, follow-up care, medications, Prescriptions given X 2, 16:51 Patient left the ED. kb3 Signatures: Suzie Hankins, INSURANCE AGENTS SUPERVISOR-C INSURANCE AGENTS SUPERVISOR-Ckb Eva Adkins, RN RN kb3 Brittaney Alejo bc6 [place] ra3 Corrections: (The following items were deleted from the chart) 16:35 16:33 Derm: Skin is intact, Skin is dry, Skin is red, Skin temperature is warm kb3 kb3
[2024-03-23 16:57] VITALS: BP 153/78; TEMP 97.6; O2SAT 98
== END 2024-03-23 16:51 | disposition home or self-care (01) ==
LOC: ER 15:45
DX: L03.116 Cellulitis of left lower limb (principal); F17.210 Nicotine dependence, cigarettes, uncomplicated
CPT/HCPCS: 99283